=== PATIENT | female | born 1930 | race Caucasian/White ===

== ENCOUNTER 2016-10-30 18:50 | Emergency (ER) | payer MEDICARE, BC ==
[2005-11-28 06:21] VITALS: BP 120/59
[~2016-10-30] VITALS: Ht 152.4 cm; Wt 54.1 kg
[~2016-10-30 18:50] MED LIST: CALCIUM 600MG+D1 TAB PO; COZAAR 50MG50 MG/TAB PO; DESYREL 50MG50 MG PO; EFFEXOR-XR150 MG PO; FIORICET 325 MG1 TA1 PO; FOSAMAX 70MG TA70 MG PO; HCTZ 25MG TAB25 MG PO; HCTZ12.5TAB PO; K-DUR 10 MEQ T10 MEQ PO; MIRAPEX 1MG PO; PRIL40 PO; RITALIN 5MG5 MG/TAB PO; ROXICODONE15 MG PO; SYNTHROID 0.0.025 MG PO; VALIUM 5MG T5 MG/TAB PO; VOLTAREN GEL 1%1 TU TP; ZOFRAN ODT4 MG PO
[2016-10-30 18:53] VITALS: TEMP 98.6
[2016-10-30 19:56] LABS: BASO % 0.6 % (0.0-2.0); EOS # 0.2 (0.0-0.7); EOS % 2.3 % (0-4.0); GRAN # 4.8 (1.4-6.5); GRAN % 74.6 % (42.2-75.2); HEMOGLOBIN 12.6 g/dl (12.5-16.0); LYMPH # 0.9 (1.2-3.4); LYMPH % 14.5 % (20.0-51.0); MEAN CELL VOLUME 90 fl (80.0-100.0); MEAN CORPUSCULAR HEMOGLOBIN 31 pg (27.0-31.0); MEAN CORPUSCULAR HGB CONC 35 g/dl (33.0-37.0); MEAN PLATELET VOLUME 10.7 fl (7.4-10.4); MONO # 0.5 (0.1-0.6); MONO % 7.7 % (1.7-9.3); PLATELET COUNT 172 K/mm3 (130-400); RED BLOOD COUNT 4.04 M/mm3 (4.10-5.30); REDCELL DISTRIBUTION WIDTH-CV 12.7 % (11.5-14.5); WHITE BLOOD COUNT 6.4 K/mm3 (4.8-10.8)
[2016-10-30 19:57] LABS: HEMATOCRIT 36.5 % (37.0-47.0)
[2016-10-30 20:17] LABS: ADJUSTED CALCIUM 9.5 mg/dL (8.4-10.2); ALANINE AMINOTRANSFERASE 20 U/L (9-52); ALBUMIN 4.2 gm/dL (3.5-5.0); ALKALINE PHOSPHATASE 107 U/L (50-136); ANION GAP 13 mmol/L (7-16); BILIRUBIN,TOTAL 0.5 mg/dL (0.0-1.0); BLOOD UREA NITROGEN 19 mg/dL (7-17); C-REACTIVE PROTEIN 3.4 mg/dL (0.0-0.9); CALCIUM 9.7 mg/dL (8.4-10.2); CARBON DIOXIDE 25 mmol/L (22-30); CHLORIDE 96 mmol/L (98-107); CREATININE, serum 0.57 mg/dL (0.52-1.25); GLUCOSE 102 mg/dL (74-106); LIPASE 26 U/L (23-300); POTASSIUM 3.7 mmol/L (3.4-5.0); SODIUM 134 mmol/L (137-145); TOTAL PROTEIN 7.8 gm/dL (6.4-8.2)
[2016-10-30 20:27] LABS: B-TYPE NATRIURETIC PEPTIDE 552 pg/mL (0-450)
[2016-10-30 20:29] LABS: TROPONIN-I < 0.012 ng/mL (0.000-0.034)
[2016-10-30 21:14] LABS: PH 7 (5-8); SQUAMOUS EPITHELIAL 0-2 /hpf; URINE APPEARANCE Clear; URINE BACTERIA None Seen /hpf; URINE BILIRUBIN Negative (NEGATIVE); URINE BLOOD 1+ (NEGATIVE); URINE COLOR Yellow; URINE GLUCOSE Negative (NEGATIVE); URINE KETONE Negative (NEGATIVE); URINE UROBILINOGEN Negative (NEGATIVE)
[2016-10-30] MEDS ORDERED: NORCO 325 MG-51 TAB PO (22:27)
[2016-10-30 22:42] VITALS: BP 157/71; PULSE 70
== END 2016-10-30 22:42 | disposition home or self-care (01) ==
LOC: COL.ER 18:50
PROVIDERS: Emergency Medicine
DX: S22.069A Unspecified fracture of T7-T8 vertebra, initial encounter for closed fracture (principal); I10 Essential (primary) hypertension; I71.2 Thoracic aortic aneurysm, without rupture; X50.3XXA Overexertion from repetitive movements, initial encounter
CPT/HCPCS: J2270; J2405; Q9967

== ENCOUNTER 2016-12-11 16:21 | Emergency (ER) | payer MEDICARE, BC ==
[2005-11-28 06:21] VITALS: BP 120/59
[~2016-12-11] VITALS: Ht 154.9 cm; Wt 54.5 kg
[~2016-12-11 16:21] MED LIST changes: +NORCO 325 MG-51 TAB PO
[2016-12-11 16:22] VITALS: TEMP 100.9
[2016-12-11 17:25] LABS: BASO % 0.4 % (0.0-2.0); EOS % 0.1 % (0-4.0); GRAN % 86.7 % (42.2-75.2); LYMPH # 0.6 (1.2-3.4); LYMPH % 6.3 % (20.0-51.0); MEAN CELL VOLUME 91 fl (80.0-100.0); MEAN CORPUSCULAR HEMOGLOBIN 30 pg (27.0-31.0); MEAN CORPUSCULAR HGB CONC 33 g/dl (33.0-37.0); MEAN PLATELET VOLUME 9.4 fl (7.4-10.4); MONO # 0.6 (0.1-0.6); MONO % 6.4 % (1.7-9.3); PLATELET COUNT 282 K/mm3 (130-400); RED BLOOD COUNT 3.97 M/mm3 (4.10-5.30); REDCELL DISTRIBUTION WIDTH-CV 12.5 % (11.5-14.5); WHITE BLOOD COUNT 9.3 K/mm3 (4.8-10.8)
[2016-12-11 17:26] LABS: HEMATOCRIT 36.2 % (37.0-47.0)
[2016-12-11 17:51] LABS: ADJUSTED CALCIUM 9.1 mg/dL (8.4-10.2); ALBUMIN 3.9 gm/dL (3.5-5.0); CREATININE, serum 0.69 mg/dL (0.52-1.25); POTASSIUM 3.9 mmol/L (3.4-5.0); TOTAL PROTEIN 7.7 gm/dL (6.4-8.2); URIC ACID 4.9 mg/dL (2.5-6.2)
[2016-12-11] MEDS ORDERED: AMOXICILLIN 8751 TAB PO (18:04)
[2016-12-11 18:14] LABS: C-REACTIVE PROTEIN 16.9 mg/dL (0.0-0.9)
[2016-12-11 18:54] VITALS: BP 141/61; PULSE 76
== END 2016-12-11 18:54 | disposition home or self-care (01) ==
LOC: COL.ER 16:21
PROVIDERS: Family Medicine
DX: L03.114 Cellulitis of left upper limb (principal); I10 Essential (primary) hypertension; Z90.710 Acquired absence of both cervix and uterus; Z90.49 Acquired absence of other specified parts of digestive tract
CPT/HCPCS: J0696; J1170; J7030

== ENCOUNTER → 2017-06-14 | Outpatient (CLI) | payer MEDICARE, BC ==
[~2017-06-14] MED LIST changes: +AMOXICILLIN 8751 TAB PO
== END ==
LOC: COL.VAS 10:27
DX: R60.0 Localized edema (principal)

== ENCOUNTER 2017-10-05 19:11 | Emergency (ER) | payer MEDICARE, BC ==
[2005-11-28 06:21] VITALS: BP 120/59
[~2017-10-05] VITALS: Ht 152.4 cm; Wt 54.1 kg
[2017-10-05 19:14] VITALS: TEMP 98.4
[2017-10-05 19:40] LABS: BASO # 0.1 (0.0-0.2); BASO % 0.8 % (0.0-2.0); EOS # 0.1 (0.0-0.7); EOS % 1.2 % (0-4.0); GRAN # 5.6 (1.4-6.5); GRAN % 72.9 % (42.2-75.2); HEMATOCRIT 37.7 % (37.0-47.0); HEMOGLOBIN 12.5 g/dl (12.5-16.0); LYMPH # 1.4 (1.2-3.4); LYMPH % 18.4 % (20.0-51.0); MEAN CELL VOLUME 89 fl (80.0-100.0); MEAN CORPUSCULAR HEMOGLOBIN 30 pg (27.0-31.0); MEAN CORPUSCULAR HGB CONC 33 g/dl (33.0-37.0); MEAN PLATELET VOLUME 8.8 fl (7.4-10.4); MONO # 0.5 (0.1-0.6); MONO % 6.4 % (1.7-9.3); PLATELET COUNT 282 K/mm3 (130-400); RED BLOOD COUNT 4.22 M/mm3 (4.10-5.30); REDCELL DISTRIBUTION WIDTH-CV 13.9 % (11.5-14.5)
[2017-10-05 19:41] LABS: INR 1.1 (0.8-3.0); PROTHROMBIN TIME 12.4 SECONDS (9.7-12.8)
[2017-10-05 19:49] LABS: ALANINE AMINOTRANSFERASE 25 U/L (9-52); ALBUMIN 4.3 gm/dL (3.5-5.0); ALKALINE PHOSPHATASE 111 U/L (50-136); ANION GAP 12 mmol/L (7-16); AST,SGOT 33 U/L (15-37); BILIRUBIN,TOTAL 0.4 mg/dL (0.0-1.0); BLOOD UREA NITROGEN 18 mg/dL (7-17); CALCIUM 9.7 mg/dL (8.4-10.2); CARBON DIOXIDE 27 mmol/L (22-30); CHLORIDE 99 mmol/L (98-107); CREATININE, serum 0.63 mg/dL (0.52-1.25); GLUCOSE 98 mg/dL (74-106); POTASSIUM 3.5 mmol/L (3.4-5.0); SODIUM 138 mmol/L (137-145); TOTAL PROTEIN 7.7 gm/dL (6.4-8.2)
[2017-10-05] MEDS ORDERED: VOLTAREN GEL 1%1 TU TP (19:56)
[2017-10-05 20:02] LABS: TROPONIN-I < 0.012 ng/mL (0.000-0.034)
[2017-10-05] MEDS ORDERED: NORVASC 5MG5 MG/TAB PO (21:51)
[2017-10-05 22:30] VITALS: BP 176/62; PULSE 56
== END 2017-10-05 22:45 | disposition home or self-care (01) ==
LOC: COL.ER 19:11
PROVIDERS: Emergency Medicine
DX: I10 Essential (primary) hypertension (principal); E03.9 Hypothyroidism, unspecified; Z90.49 Acquired absence of other specified parts of digestive tract; Z98.890 Other specified postprocedural states
CPT/HCPCS: J1885; J2405; J3010

== ENCOUNTER 2017-12-11 11:53 | Inpatient (IN) | payer MEDICARE, BC ==
[~2017-12-11] VITALS: Ht 154.9 cm; Wt 63.0 kg
[~2017-12-11 11:53] MED LIST changes: +NORVASC 5MG5 MG/TAB PO
[2018-02-12] VITALS (11 sets, daily range): BP systolic 132–1026; BP diastolic 35–71; PULSE 51–64; TEMP 97.3–98.2
[2018-02-13 01:48] VITALS: BP 132/28; PULSE 48; TEMP 97
[2018-02-13 05:39] VITALS: BP 111/71; PULSE 58; TEMP 98.7
[2018-02-13 06:58] LABS: HEMOGLOBIN 11.1 g/dl (12.5-16.0)
[2018-02-13 07:15] VITALS: BP 142/36; PULSE 60; TEMP 96.4
[2018-02-13 07:16] LABS: HEMATOCRIT 32.7 % (37.0-47.0)
[2018-02-13] MEDS ORDERED: ZOLOFT 100MG100 MG PO (09:10)
[2018-02-13 11:00] VITALS: BP 137/30; PULSE 54; TEMP 97.7
[2018-02-13 16:28] VITALS: BP 136/34; PULSE 66; TEMP 97.8
[2018-02-13 22:45] VITALS: BP 121/35; PULSE 62; TEMP 97.6
[2018-02-14 05:15] VITALS: BP 151/36; BP 181/36; PULSE 71; TEMP 98.5
[2018-02-14 07:42] VITALS: BP 169/43; PULSE 72; TEMP 98.6
[2018-02-14 10:15] LABS: BASO % 0.5 % (0.0-2.0); EOS % 0.5 % (0-4.0); GRAN # 6.4 (1.4-6.5); GRAN % 84.2 % (42.2-75.2); HEMOGLOBIN 10.7 g/dl (12.5-16.0); LYMPH # 0.6 (1.2-3.4); LYMPH % 7.9 % (20.0-51.0); MEAN CELL VOLUME 92 fl (80.0-100.0); MEAN CORPUSCULAR HEMOGLOBIN 30 pg (27.0-31.0); MEAN CORPUSCULAR HGB CONC 32 g/dl (33.0-37.0); MEAN PLATELET VOLUME 8.8 fl (7.4-10.4); MONO # 0.5 (0.1-0.6); MONO % 6.4 % (1.7-9.3); PLATELET COUNT 259 K/mm3 (130-400); REDCELL DISTRIBUTION WIDTH-CV 13.3 % (11.5-14.5)
[2018-02-14 10:25] LABS: ALBUMIN 3.5 gm/dL (3.5-5.0); BILIRUBIN,TOTAL 0.2 mg/dL (0.0-1.0); CREATININE, serum 0.68 mg/dL (0.52-1.25); TOTAL PROTEIN 6.6 gm/dL (6.4-8.2)
[2018-02-14 11:21] VITALS: BP 116/49; PULSE 68; TEMP 98.1
[2018-02-14 16:32] VITALS: BP 167/46; PULSE 74; TEMP 99.9
[2018-02-14 20:38] VITALS: BP 100/87; PULSE 77; TEMP 98.5
[2018-02-14 23:44] VITALS: BP 148/46; PULSE 74; TEMP 98.3
[2018-02-15 03:38] VITALS: BP 120/38; PULSE 68; TEMP 98.5
[2018-02-15 06:32] VITALS: BP 120/38; PULSE 68; TEMP 98.5
[2018-02-15] MEDS ORDERED: ASPI325T6 PO (06:36)
[2018-02-15] MEDS ORDERED: NORCO 325 MG-7.1 TAB PO (06:37)
[2018-02-15] MEDS ORDERED: TYLENOL 500MG500 MG PO (06:38)
[2018-02-15] MEDS ORDERED: ROXICODONE 55 MG/TAB PO (06:38)
[2018-02-15] MEDS ORDERED: GOOD NEIGH1200 MG/15 PO (06:39)
[2018-02-15] MEDS ORDERED: DULCOLAX S10 MG/SUPP RC (06:39)
[2018-02-15] MEDS ORDERED: SENOKOT S 50 MG1 TAB PO (06:40)
[2018-02-15 06:55] VITALS: BP 168/46; PULSE 67; TEMP 98.6
== END 2018-02-15 11:23 | DRG 470 ==
LOC: JCC 02-12 09:04
PROVIDERS: Orthopaedic Surgery; Physician Assistant
PROC: 0SRC0J9 Replacement of Right Knee Joint with Synthetic Substitute, Cemented, Open Approach (ICD-10-PCS; principal; 2018-02-12 12:40)
DX: M17.11 Unilateral primary osteoarthritis, right knee (principal); I10 Essential (primary) hypertension; Z87.891 Personal history of nicotine dependence; Z86.718 Personal history of other venous thrombosis and embolism; K21.9 Gastro-esophageal reflux disease without esophagitis; G25.81 Restless legs syndrome
CPT/HCPCS: 99222; 99231-AI; A4314; A4315; A9284; C1713; C1776; J0461; J0690; J1100; J2250; J2405; J2704; J3010; J7120

== ENCOUNTER → 2018-01-30 | Outpatient (CLI) | payer MEDICARE, BC ==
[2018-01-30 13:19] LABS: HIV 1/2 Antibodies Non-Reactive; HIV-1p24 Antigen Non-Reactive
== END ==
LOC: COL.LAB 11:32
PROVIDERS: Orthopaedic Surgery
DX: Z01.812 Encounter for preprocedural laboratory examination (principal); M17.11 Unilateral primary osteoarthritis, right knee

== ENCOUNTER 2018-08-24 18:02 | Emergency (ER) | payer MEDICARE, BC ==
[2005-11-28 06:21] VITALS: BP 120/59
[~2018-08-24] VITALS: Ht 154.9 cm; Wt 53.6 kg
[2018-08-24 18:02] VITALS: TEMP 98.1
[~2018-08-24 18:02] MED LIST changes: +ASPI325T6 PO; +DULCOLAX S10 MG/SUPP RC; +GOOD NEIGH1200 MG/15 PO; +NORCO 325 MG-7.1 TAB PO; +ROXICODONE 55 MG/TAB PO; +SENOKOT S 50 MG1 TAB PO; +TYLENOL 500MG500 MG PO; +ZOLOFT 100MG100 MG PO
[2018-08-24 19:06] LABS: BASO # 0.1 (0.0-0.2); BASO % 0.6 % (0.0-2.0); EOS % 0.5 % (0-4.0); GRAN # 6.4 (1.4-6.5); GRAN % 80.3 % (42.2-75.2); HEMOGLOBIN 12.4 g/dl (12.5-16.0); LYMPH # 0.9 (1.2-3.4); LYMPH % 11.1 % (20.0-51.0); MEAN CELL VOLUME 87 fl (80.0-100.0); MEAN CORPUSCULAR HEMOGLOBIN 30 pg (27.0-31.0); MEAN CORPUSCULAR HGB CONC 35 g/dl (33.0-37.0); MONO # 0.6 (0.1-0.6); MONO % 7.2 % (1.7-9.3); PLATELET COUNT 323 K/mm3 (130-400); RED BLOOD COUNT 4.12 M/mm3 (4.10-5.30); REDCELL DISTRIBUTION WIDTH-CV 13.1 % (11.5-14.5)
[2018-08-24 19:13] LABS: ALBUMIN 4.3 gm/dL (3.5-5.0); BILIRUBIN,TOTAL 0.3 mg/dL (0.0-1.0); CALCIUM 10.1 mg/dL (8.4-10.2); CREATININE, serum 0.91 (0.52-1.25); POTASSIUM 3.5 mmol/L (3.4-5.0); TOTAL PROTEIN 7.9 gm/dL (6.4-8.2)
[2018-08-24 19:30] LABS: HEMATOCRIT 35.8 % (37.0-47.0)
[2018-08-24 19:41] LABS: COLLECTION METHOD CLEAN CATCH
[2018-08-24 20:02] LABS: MUCOUS Present /lpf; PH 6 (5-8); SQUAMOUS EPITHELIAL 0-2 /hpf; URINE APPEARANCE Hazy; URINE BACTERIA Moderate /hpf; URINE BILIRUBIN Negative (NEGATIVE); URINE BLOOD 1+ (NEGATIVE); URINE COLOR Yellow; URINE GLUCOSE Negative (NEGATIVE); URINE KETONE Negative (NEGATIVE); URINE LEUKOCYTE ESTERASE 3+ (NEGATIVE); URINE NITRATE Positive (NEGATIVE); URINE PROTEIN(semi-quant) 1+ (NEGATIVE); URINE UROBILINOGEN Negative (NEGATIVE)
[2018-08-24] MEDS ORDERED: ATIVAN 0.50.5 MG/TAB PO (20:05)
[2018-08-24 21:00] VITALS: BP 147/84; PULSE 74
[2018-08-24] MEDS ORDERED: MACROBID 1100 MG/CAP PO (21:05)
== END 2018-08-24 21:15 | disposition home or self-care (01) ==
LOC: COL.ER 18:02
PROVIDERS: Family Medicine
DX: N39.0 Urinary tract infection, site not specified (principal); F41.9 Anxiety disorder, unspecified; I10 Essential (primary) hypertension; K21.9 Gastro-esophageal reflux disease without esophagitis; Z79.82 Long term (current) use of aspirin

== ENCOUNTER 2020-10-07 14:49 | Emergency (ER) | payer MEDICARE, BC ==
[~2020-10-07] VITALS: Ht 154.9 cm; Wt 54.5 kg
[~2020-10-07 14:49] MED LIST changes: +ATIVAN 0.50.5 MG/TAB PO; +MACROBID 1100 MG/CAP PO
[2020-10-07 15:53] VITALS: TEMP 98.3
[2020-10-07 17:59] VITALS: BP 148/78; PULSE 63
== END 2020-10-07 18:00 | disposition home or self-care (01) ==
LOC: COL.ER 14:49
DX: M25.551 Pain in right hip (principal); F41.9 Anxiety disorder, unspecified; Z90.711 Acquired absence of uterus with remaining cervical stump; Z98.51 Tubal ligation status; Z79.899 Other long term (current) drug therapy; Z96.643 Presence of artificial hip joint, bilateral

== ENCOUNTER 2021-10-13 16:14 | Emergency (ER) | payer MEDICARE, BC | END 2021-10-13 16:45 | disposition left against medical advice (07) | LOC: COL.ER 16:14 | DX: R69 Illness, unspecified (principal) ==

== ENCOUNTER 2021-10-28 12:55 | Emergency (ER) | payer MEDICARE, BC ==
[~2021-10-28] VITALS: Ht 157.5 cm; Wt 40.9 kg
[2021-10-28 13:23] VITALS: TEMP 99.3
[2021-10-28 14:09] LABS: BASO # 0.1 K/mm3 (0.0-0.2); BASO % 0.9 % (0.0-2.0); EOS # 0.1 K/mm3 (0.0-0.7); EOS % 1.7 % (0.0-4.0); GRAN # 4.7 K/mm3 (1.4-6.5); HEMATOCRIT 34.4 % (37.0-47.0); HEMOGLOBIN 12.1 g/dl (12.5-16.0); LYMPH # 0.6 K/mm3 (1.2-3.4); LYMPH % 9.9 % (20.0-51.0); MEAN CELL VOLUME 93 fl (80.0-100.0); MEAN CORPUSCULAR HEMOGLOBIN 33 pg (27-31); MEAN CORPUSCULAR HGB CONC 35 g/dl (33.0-37.0); MEAN PLATELET VOLUME 8.8 fl (7.4-10.4); MONO # 0.4 K/mm3 (0.1-0.6); MONO % 7.3 % (1.7-9.3); PLATELET COUNT 246 K/mm3 (130-400); RED BLOOD COUNT 3.71 M/mm3 (4.10-5.30); REDCELL DISTRIBUTION WIDTH-CV 11.9 % (11.5-14.5)
[2021-10-28 14:27] LABS: ALBUMIN 4.1 gm/dL (3.4-4.8); BILIRUBIN,TOTAL 0.4 mg/dL (0.2-1.2); CALCIUM 9.6 mg/dL (8.4-10.2); CREATININE, serum 0.76 mg/dL (0.57-1.11); POTASSIUM 3.6 mmol/L (3.5-4.5)
[2021-10-28 16:57] VITALS: BP 150/74; PULSE 67
== END 2021-10-28 16:57 | disposition home or self-care (01) ==
LOC: COL.ER 12:55
PROVIDERS: Physician Assistant
DX: R10.84 Generalized abdominal pain (principal); Z90.49 Acquired absence of other specified parts of digestive tract

== ENCOUNTER 2021-10-31 16:45 | Observation (INO) | payer MEDICARE, BC ==
[~2021-10-31] VITALS: Ht 154.9 cm; Wt 44.9 kg
[2021-10-31 18:04] VITALS: BP 165/77; PULSE 84; TEMP 98.3
--- NOTE | 2021-10-31 18:14 | NUR ---
PT ADMITTED TO ROOM 324, VSS, PT HYPERTENSIVE BUT VERY ANXIOUS, PT ORIENTED TO ROOM/FLOOR ROUTINES, GI CONSULT CALLED, FALL PRECAUTIONS IN PLACE, CALL LIGHT IN REACH
--- NOTE | 2021-10-31 19:08 | NUR ---
STARTED #22 INSYTE TO AQUILES ON SECOND ATTEMPT. DID ADMISSION QUESTIONS AT THIS TIME. PT IS ALERT AND ORIENTED X4. DID KNOW NAMES OF MEDS SHE TAKES, OFFERED HER SON MARY BOTELLO TO CLARIFY MEDS. ASKS TO TAKE MEDS IN APPLESAUCE. WATCHING TV.
[2021-10-31 19:12] LABS: HEMOGLOBIN 12.9 g/dl (12.5-16.0); MEAN CELL VOLUME 94 fl (80.0-100.0); MEAN CORPUSCULAR HEMOGLOBIN 33 pg (27-31); MEAN CORPUSCULAR HGB CONC 35 g/dl (33.0-37.0); MEAN PLATELET VOLUME 9.3 fl (7.4-10.4); PLATELET COUNT 287 K/mm3 (130-400); RED BLOOD COUNT 3.92 M/mm3 (4.10-5.30); REDCELL DISTRIBUTION WIDTH-CV 12.3 % (11.5-14.5)
[2021-10-31] MEDS ORDERED: AMOXICILLIN 8751 TAB PO (19:14)
[2021-10-31] MEDS ORDERED: TOVIAZ4 MG PO (19:15)
[2021-10-31] MEDS ORDERED: REQUIP 1MG T1 MG/TAB PO (19:15)
[2021-10-31] MEDS ORDERED: SYNTHROID0.075 MG/T PO (19:16)
[2021-10-31] MEDS ORDERED: NORVASC 5MG5 MG/TAB PO (19:20)
[2021-10-31 19:25] VITALS: BP 137/51; PULSE 76; TEMP 98.1
[2021-10-31 19:26] LABS: INR 1.2 (0.8-3.0)
[2021-10-31 19:29] LABS: BILIRUBIN,TOTAL 0.5 mg/dL (0.2-1.2); CALCIUM 9.6 mg/dL (8.4-10.2); CREATININE, serum 0.75 mg/dL (0.57-1.11); POTASSIUM 3.4 mmol/L (3.5-4.5)
--- NOTE | 2021-10-31 20:53 | NUR ---
HS MEDS GIVEN INCLUDING VALIUM 5MG PO AND ES TYLENOL 1000MG PO FOR BACK PAIN FROM FALL AT HOME YESTERDAY. CONSENT FOR EGD SIGNED, DR BANDA WAS HERE AND EXPLAINED PROCEDURE. PT AWARE SHE WILL BE NPO AFTER MIDNIGHT. PT SWALLOWED MEDS WITH APPLESAUCE WITHOUT PROBLEM. EGD SCHEDULED FOR 1230 11/01/21.
[2021-10-31 21:06] LABS: HIV 1/2 Antibodies Non-Reactive; HIV-1p24 Antigen Non-Reactive
[2021-10-31 23:13] VITALS: BP 101/40; PULSE 62; TEMP 98
[2021-11-01] VITALS (12 sets, daily range): BP systolic 97–158; BP diastolic 40–77; PULSE 67–79; TEMP 97.7–98.6
--- NOTE | 2021-11-01 03:00 | NUR ---
ASSISTED PT TO BSC WITH 2 ASSIST/GAIT BELT, VOIDS AND BACK TO BED.
[2021-11-01 06:39] LABS: BASO % 0.5 % (0.0-2.0); EOS # 0.1 K/mm3 (0.0-0.7); EOS % 1.3 % (0.0-4.0); GRAN # 6.3 K/mm3 (1.4-6.5); GRAN % 82.6 % (42.2-75.2); HEMOGLOBIN 12.7 g/dl (12.5-16.0); LYMPH # 0.6 K/mm3 (1.2-3.4); LYMPH % 8.4 % (20.0-51.0); MEAN CELL VOLUME 94 fl (80.0-100.0); MEAN CORPUSCULAR HEMOGLOBIN 33 pg (27-31); MEAN CORPUSCULAR HGB CONC 35 g/dl (33.0-37.0); MEAN PLATELET VOLUME 9.5 fl (7.4-10.4); MONO # 0.5 K/mm3 (0.1-0.6); MONO % 6.8 % (1.7-9.3); PLATELET COUNT 293 K/mm3 (130-400); RED BLOOD COUNT 3.91 M/mm3 (4.10-5.30); REDCELL DISTRIBUTION WIDTH-CV 12.2 % (11.5-14.5)
[2021-11-01 06:45] LABS: HEMATOCRIT 36.6 % (37.0-47.0)
[2021-11-01 06:53] LABS: ALBUMIN 3.5 gm/dL (3.4-4.8); CALCIUM 9.2 mg/dL (8.4-10.2); CREATININE, serum 0.89 mg/dL (0.57-1.11); MAGNESIUM 1.9 mg/dL (1.6-2.6); PHOSPHOROUS 3.1 mg/dL (2.3-4.7); POTASSIUM 3.7 mmol/L (3.5-4.5)
--- NOTE | 2021-11-01 08:30 | NUR ---
Pt. laying in bed with PT at bedside. Pt. is a&OX3, assessment complete. INT to lt. upper arm patent. Pt. assisted to sitting position by PT. Pt. reports epigastric pain that is burning pain . Gave IV protonix. Pt. denies further needs. PT assisting pt. with ambulation.
--- NOTE | 2021-11-01 10:09 | NUR ---
Tap And Die Maker Technician met with patient to discuss discharge planning. Patient states she is having some pain, however is willing to answer intake questions. RN aware of patient pain. Patient lives in [place] and reported her son, Mustapha (ph#[phone]) lives with her. Patient sees Dr. Bob for primary care and obtains medications from [facility] with no difficulties. Patient uses a walker for ambulation and advised she is fairly independent however needs assistance with bathing which she receives from [facility]. Patient verbalized she wants to continue using services from [facility] upon discharge. Patient states she believes she has DPOA-HC completed which designates her daughter, Niyah (ph#[phone]) however SW did not locate copy in EMR. Patient plans to return home upon discharge wtih continued services from [facility]. PT/OT ordered. ALFIE contacted ALFIE Bolanos at Dr. Bob's office and requested DPOA-HC, however Cici could not locate a copy. ALFIE contacted patient's daughter, Niyah to review discharge plan. Niyah is in agreement with discharge home with . ALFIE contacted Lakhwinder at [facility] and faxed updates. Lakhwinder advised they can continue seeing patient upon discharge. Discharge Plan: Home with family and [facility]
--- NOTE | 2021-11-01 12:30 | NUR ---
Pt. to Endo.
--- NOTE | 2021-11-01 13:15 | NUR ---
Pt. returned to the floor from Endo. Vitals stable. Pt. denies pain or other needs. Call light within reach reach.
[2021-11-01 17:49] LABS: HEPATITIS B SURFACE ANTIGEN Negative (Negative); HEPATITIS C VIRUS ANTIBODY Negative (Negative)
--- NOTE | 2021-11-01 21:15 | NUR ---
PT IN BED. TAKES HS MEDS INCLUDING VALIUM 5MG PO AND ES TYLENOL 1000MG PO FOR NECK AND BACK PAIN. HAS INT TO AQUILES, IV PROTONIX GIVEN WITHOUT REDNESS OR SWELLING. CHANGED BANDAID TO RT ELBOW ABRASION. IS ALERT AND ORIENTED X4.
[2021-11-02 03:39] VITALS: BP 111/45; PULSE 68; TEMP 98.2
--- NOTE | 2021-11-02 06:00 | NUR ---
PT TAKES SCHEDULED AM MED WITHOUT PROBLEM. HAS RESTED WELL THIS SHIFT.
[2021-11-02 06:06] LABS: BASO # 0.1 K/mm3 (0.0-0.2); BASO % 0.7 % (0.0-2.0); EOS # 0.3 K/mm3 (0.0-0.7); EOS % 3.9 % (0.0-4.0); HEMOGLOBIN 11.8 g/dl (12.5-16.0); LYMPH # 0.9 K/mm3 (1.2-3.4); LYMPH % 13.2 % (20.0-51.0); MEAN CELL VOLUME 93 fl (80.0-100.0); MEAN CORPUSCULAR HEMOGLOBIN 33 pg (27-31); MEAN CORPUSCULAR HGB CONC 35 g/dl (33.0-37.0); MEAN PLATELET VOLUME 9.4 fl (7.4-10.4); MONO # 0.7 K/mm3 (0.1-0.6); MONO % 9.9 % (1.7-9.3); PLATELET COUNT 265 K/mm3 (130-400); REDCELL DISTRIBUTION WIDTH-CV 11.9 % (11.5-14.5)
[2021-11-02 06:19] LABS: HEMATOCRIT 33.3 % (37.0-47.0)
[2021-11-02 06:32] LABS: CALCIUM 8.6 mg/dL (8.4-10.2); CREATININE, serum 0.71 mg/dL (0.57-1.11); MAGNESIUM 1.7 mg/dL (1.6-2.6); PHOSPHOROUS 2.6 mg/dL (2.3-4.7); POTASSIUM 3.5 mmol/L (3.5-4.5)
[2021-11-02 07:46] VITALS: BP 117/57; PULSE 67; TEMP 98
--- NOTE | 2021-11-02 09:30 | NUR ---
Pt. sitting up in bed. Pt. is A&OX3, assessment complete. INTto lt. upper arm patent. Pt. reports back pain at a 3 on pain scale. Pt. given Tylenol. Pt. denies further needs.
--- NOTE | 2021-11-02 10:04 | NUR ---
Initial visit; Patient greeted Chemist Organic with a sad face. Chemist Organic spoke with Adali miller, introducing heself and finally when Chemist Organic asked if she could keep Adali in her prayers and offered God's blessings, Adali Lincoln smiled and held Chemist Organic's hand.
[2021-11-02 12:23] VITALS: BP 156/46; PULSE 68; TEMP 97.7
--- NOTE | 2021-11-02 13:00 | NUR ---
Pt. ready to discharge and pt.s family here. Reviewed pt. med rec, follow up appointments, discharge instructions, and education. Pt. voices understanding. All questions were answered. Pt. Escorted out with CORE LAYING MACHINE OPERATOR by wheelchair.
--- NOTE | 2021-11-02 14:46 | NUR ---
Patient to discharge today. ALFIE contacted Lakhwinder at [facility] and faxed discharge orders.
== END 2021-11-02 13:30 | disposition home health service (06) ==
LOC: SURG 16:45
PROVIDERS: Internal Medicine Gastroenterology; Personal Emergency Response Attendant; ADMIT Internal Medicine
DX: K29.50 Unspecified chronic gastritis without bleeding (principal); K31.89 Other diseases of stomach and duodenum; K92.1 Melena; R55 Syncope and collapse; I10 Essential (primary) hypertension; R29.6 Repeated falls; F41.9 Anxiety disorder, unspecified; E03.9 Hypothyroidism, unspecified; R53.81 Other malaise; I49.9 Cardiac arrhythmia, unspecified; Z79.899 Other long term (current) drug therapy; Z90.49 Acquired absence of other specified parts of digestive tract; Z79.890 Hormone replacement therapy
CPT/HCPCS: C9113; G0378; J2704